=== PATIENT | female | born 1945 | race Native Hawaiian/Other Pacific Islander ===

== ENCOUNTER 2016-12-18 08:56 | Outpatient (CLI) | payer OTHER, BC | END 2016-12-18 10:00 | disposition home or self-care (01) | LOC: LABW 08:56 | DX: D33.0 Benign neoplasm of brain, supratentorial (principal) | CPT/HCPCS: 36415; 82565; 84520 ==

== ENCOUNTER 2019-03-12 08:37 | Outpatient (CLI) | payer OTHER | END 2019-03-12 19:24 | disposition home or self-care (01) | LOC: MRI 08:37 | DX: R42 Dizziness and giddiness (principal); R26.89 Other abnormalities of gait and mobility | CPT/HCPCS: 36415; 82565; 84520; A9576 ==

== ENCOUNTER 2022-08-18 13:31 | Outpatient (CLI) | payer OTHER | END 2022-08-18 18:55 | disposition home or self-care (01) | LOC: MRI 13:31 | PROVIDERS: ATTEND Neurological Surgery | DX: R42 Dizziness and giddiness (principal); R26.89 Other abnormalities of gait and mobility | CPT/HCPCS: 36415; 82565; 84520; A9576 ==